=== PATIENT | female | born 1950 | race Two or more races ===

== ENCOUNTER 2020-03-09 08:07 | Outpatient (CLI) | payer OTHER | END 2020-03-09 10:42 | disposition home or self-care (01) | LOC: SONOGRAMA 08:07 | PROVIDERS: ATTEND Pathology Anatomic Pathology & Clinical Pathology | DX: D34 Benign neoplasm of thyroid gland (principal); E06.3 Autoimmune thyroiditis; E04.2 Nontoxic multinodular goiter ==

== ENCOUNTER 2022-02-10 09:58 | Outpatient (CLI) | payer OTHER | END 2022-02-10 10:01 | disposition home or self-care (01) | LOC: SONOGRAMA 09:58 | PROVIDERS: ATTEND Pathology Anatomic Pathology & Clinical Pathology | DX: E04.1 Nontoxic single thyroid nodule (principal); E06.3 Autoimmune thyroiditis ==